=== PATIENT | male | born 1960 | race Caucasian/White ===

== ENCOUNTER → 2016-06-04 | Outpatient (CLI) | payer OTHER ==
[~2016-06-04] MED LIST: LISI40TAB PO; NEXI20CA PO; XANA0.5T PO
--- NOTE | 2016-06-04 10:10 | REP ---
CT CHEST WITHOUT IV CONTRAST: CT chest is performed without intravenous contrast administration and compared to a prior study of 01/23/2016. There is a stable 5 mm noncalcified pulmonary nodule in the right upper lobe. No new nodules are seen. Tiny calcified granuloma is seen a little more superiorly in right upper lobe. There are scattered interstitial fibrotic changes and mild bronchiectasis. Subcentimeter lymph nodes are seen in the mediastinal region. There is no thoracic aortic aneurysm. The heart is normal in size. There is no pleural or pericardial effusion. The visualized upper abdominal structures are grossly unremarkable. IMPRESSION: Stable 5 mm noncalcified pulmonary nodule right upper lobe. Recommend followup CT in six months. Signed by Manohar Avina MD 06/04/2016 05:20 P
== END ==
LOC: M RAD 08:50
PROVIDERS: ATTEND Family Medicine
DX: R93.8 Abnormal findings on diagnostic imaging of other specified body structures (principal); R91.1 Solitary pulmonary nodule

== ENCOUNTER → 2016-12-19 | Outpatient (CLI) | payer OTHER ==
--- NOTE | 2016-12-19 17:04 | REP ---
Clinical: Follow-up pulmonary nodule. Comparison: 06/04/2016, 01/23/2016. Findings: Bilateral lung sotelo demonstrate mild emphysematous changes along with scattered interstitial changes and bronchiectasis which remain stable. The 5 mm noncalcified pulmonary nodule in the anterior periphery of the right upper lobe (image 54) remains stable as well as smaller peripheral densities primarily noted in the right hemithorax. No acute consolidation, new nodule or mass lesion is appreciated. No pleural effusion/reaction or pneumothorax. Tracheobronchial tree is patent. Mediastinum demonstrates stable lymph nodes measuring up to approximately 10 mm short axis diameter. Atherosclerotic changes to the thoracic aorta and coronary arteries noted without aortic aneurysm or cardiomegaly. No pericardial effusion. Musculoskeletal structures are intact. Limited abdomen demonstrates normal bilateral adrenal glands. Impression: 1. The 5 mm noncalcified pulmonary nodule in the periphery of the right upper lobe as well as smaller scattered densities remain stable through 01/23/2016 and no new nodule or mass lesion is appreciated. 12-month follow-up may be warranted to ensure benignity and chronicity. 2. Mild diffuse emphysematous changes with scattered interstitial changes and bronchiectasis similar to prior examinations. Few mediastinal lymph nodes are again identified and remain stable and nonspecific. Signed by Benjamin Franz MD 12/19/2016 04:54 P
== END ==
LOC: M RAD 16:06
PROVIDERS: ATTEND Family Medicine
DX: R91.1 Solitary pulmonary nodule (principal)